=== PATIENT | female | born 1990 | race Caucasian/White ===

== ENCOUNTER 2016-07-21 09:18 | Emergency (ER) | payer OTHER ==
[2016-07-21 10:56] VITALS: BP 108/55
== END 2016-07-21 10:56 | disposition home or self-care (01) ==
LOC: ED 09:18
DX: H66.92 Otitis media, unspecified, left ear (principal); J20.9 Acute bronchitis, unspecified
CPT/HCPCS: J2001; J7613; J7644

== ENCOUNTER 2017-05-26 09:41 | Emergency (ER) | payer OTHER ==
[~2017-05-26] VITALS: Ht 154.9 cm; Wt 78.2 kg
[2017-05-26 09:48] VITALS: Ht 154.9 cm; Wt 78.2 kg
[2017-05-26 12:13] VITALS: BP 110/60
[2017-05-27 05:40] LABS: RAPID PLASMA REAGIN Non Reactive (Non Reactive)
== END 2017-05-26 12:13 | disposition home or self-care (01) ==
LOC: ED 09:41
PROVIDERS: Emergency Medicine
DX: S61.254A Open bite of right ring finger without damage to nail, initial encounter (principal); M25.512 Pain in left shoulder; Y04.1XXA Assault by human bite, initial encounter; Y93.89 Activity, other specified; Y92.89 Other specified places as the place of occurrence of the external cause; Y99.8 Other external cause status